=== PATIENT | female | born 1955 | race Caucasian/White ===

== ENCOUNTER 2023-12-22 09:05 | Emergency (ER) | payer MEDICARE | END 2023-12-22 09:57 | disposition home or self-care (01) | LOC: ERS 09:05 | DX: Z48.02 Encounter for removal of sutures (principal); Z87.891 Personal history of nicotine dependence ==

== ENCOUNTER 2024-01-12 11:45 | Outpatient (CLI) | payer MEDICARE | END 2024-01-12 11:46 | disposition home or self-care (01) | LOC: PET 11:45 | PROVIDERS: ATTEND Internal Medicine Hematology & Oncology | DX: C18.2 Malignant neoplasm of ascending colon (principal); C78.7 Secondary malignant neoplasm of liver and intrahepatic bile duct; C78.02 Secondary malignant neoplasm of left lung | CPT/HCPCS: 78815; A9552 ==

== ENCOUNTER 2025-01-14 07:41 | Outpatient (CLI) | payer MEDICARE ==
[2025-01-14 08:12] LABS: Estimated GFR - POC 70.0
[2025-01-14] MEDS ORDERED: Iopamidol 370 76% 100 ML VIAL ONE (09:52)
== END 2025-01-14 07:42 | disposition home or self-care (01) ==
LOC: CT 07:41
PROVIDERS: ATTEND Internal Medicine Hematology & Oncology
DX: C18.2 Malignant neoplasm of ascending colon (principal); R91.1 Solitary pulmonary nodule; C78.7 Secondary malignant neoplasm of liver and intrahepatic bile duct; Z79.899 Other long term (current) drug therapy
CPT/HCPCS: 36415; 71260; 74177; 82565 ×2; Q9967

== ENCOUNTER 2025-05-24 09:30 | Outpatient (CLI) | payer MEDICARE | END 2025-05-24 09:31 | disposition home or self-care (01) | LOC: PET 09:30 | PROVIDERS: ATTEND Internal Medicine Hematology & Oncology | DX: C18.2 Malignant neoplasm of ascending colon (principal); Z79.899 Other long term (current) drug therapy; K76.9 Liver disease, unspecified | CPT/HCPCS: 78815; A9552 ==